=== PATIENT | male | born 1965 | race Hispanic/Latino ===

== ENCOUNTER 2016-10-20 11:46 | Emergency (ER) | payer OTHER ==
[~2016-10-20] VITALS: Ht 157.5 cm; Wt 56.8 kg
[2016-10-20 11:58] VITALS: BP 115/74; PULSE 77; RESP 16; O2SAT 97
--- NOTE | 2016-10-20 12:39 | ED.REPORT ---
HPI-Headache Date of Service Oct 20, 2016 ED Provider: History of Present Illness: 50yo male with hx. of migraine HAs, usualy able top abort with Tylenol, but this PEREZ persists for several days. Pain L sided, identical to previous HAs in location and intensity. No fever, neck pain, vision change, photophobia Nursing Notes Stated Complaint: MIGRAINE Chief Complaint: Headache Nursing Notes Reviewed: Yes Allergies: Coded Allergies: No Known Allergies (Unverified , 10/20/16) Scheduled PRN Naproxen (Naprosyn) 500 Mg Tablet 500 MG PO BID PRN PRN For Pain General Time Seen by MD: 12:39 Chief Complaint Headache Hx Obtained From: Patient Arrived By: Walk-in Sudden in Onset?: Yes Onset Occurred: 5 days ago Symptom Duration: Waxes and wanes Location: : Parietal left Quality: Same as prior, Cramping, Sharp Radiation: : Does not radiate Severity: Current: Mild Severity: Maximum: Moderate Associated with: Denies: Aura sensory, Aura visual, Fever, Nausea, Photophobia , Vertigo, Vomiting Recent Healthcare: No recent doctor visit Similar Sx Previous: Yes Risk-Headache )( SAH Risk Stratification RF Statements: Risk factors reviewed )( IC Mass Risk Stratification RF Statements: No risk factors Past Medical History Past Medical History Reports: Depression, Migraines Smoking History Unknown if Ever Smoker Social History Alcohol Use: Denies alcohol use Drug Use: Denies drug use Ambulatory Status Independent Review of Systems Constitutional: Denies: Chills, Fever Eyes: Denies: Blurred bilateral GI: Denies: Abdominal pain, Nausea Musculoskeletal: Denies: Neck pain Psychiatric: Reports: Depression Physical Exam Initial Vital Signs Vital Signs (First) Date Time Temp Pulse Resp B/P Pulse Ox O2 Delivery O2 Flow Rate FiO2 10/20/16 11:58 37.1 77 16 115/74 97 Room Air Initial VS: Vital signs normal General/Constitutional: Awake, Alert, No acute distress, Well hydrated, Well nourished, Not toxic appearing Head / Eyes: Atraumatic, Normocephalic, PERRL, EOMI Neck: Supple, No meningismus, No adenopathy Neurologic: Oriented X3, Speech NL, No motor deficits, No sensory deficits, CN II - XII intact, Memory NL, Gait NL ENT: Pharynx NL, Tympanic membs NL, Mastoid area NL Respiratory / Chest: Atraumatic, Breath sounds NL, Breath sounds = bilat, No respiratory distress Cardiovascular: Heart rate NL, Regular rhythm, Heart sounds NL Abdomen: Soft, Non-tender Interpretation & Diagnostics Lab Results Interpretation Test 10/20/16 13:15 Hold Purple Top Tube Received (Received) Hold Blue Top Tube Received (Received) Hold [place] Top Tube Received (Received) Re-Eval/Medical Decision Med Decision/Clinical Course Pt's symptoms much improved with IV fluids and meds. He remains stable. Will discharge home with Naprosyn and encouraged f/u with [facility] to establish care. Return to ER if worse. Counseled Regarding: Diagnosis, Need for follow-up, When/why to return to ED Discharge & Departure Impression: Primary Impression: Headache Headache type: unspecified Headache chronicity pattern: acute headache Intractability: not intractable Qualified Code: R51 - Headache Disposition: Home Patient Instructions: Acute Headache (DC) Additional Instructions: Push fluids, take medication as needed for headache. Follow up with [facility] to establish care. Return to ER if worse. Referrals: [facility] 2-3 days recheck, [facility] EDSupervising Provider for APC: Franko Enriquez MD, Christopher R PAC Oct 20, 2016 12:39 Brown Finch Oct 20, 2016 12:39
[2016-10-20] MEDS ORDERED: 0.9% Sodium Chloride 1,000 ML IV ONE (13:00)
[2016-10-20] MEDS ORDERED: Ondansetron 2 mg/mL 2 mL Inj IVPUSH ONE (13:00)
[2016-10-20] MEDS ORDERED: NAPR500T PO (14:11)
== END 2016-10-20 14:22 | disposition home or self-care (01) ==
LOC: SED 11:46 → MERGE 11:46 → SED 14:22
DX: R51 Headache (principal); Z86.69 Personal history of other diseases of the nervous system and sense organs
CPT/HCPCS: 96361; 96374; 96375; 99284; J1200; J2405; J7030